=== PATIENT | male | born 1940 | race Caucasian/White ===

== ENCOUNTER → 2018-07-30 08:44 | Outpatient (CLI) | payer MEDICARE, BC | END | disposition home or self-care (01) | LOC: D.MRI 08:44 | DX: M54.5 Low back pain (principal) ==

== ENCOUNTER → 2018-09-18 09:15 | Outpatient (CLI) | payer MEDICARE, BC | END | disposition home or self-care (01) | LOC: D.HCCARDIO 09:15 | DX: I20.9 Angina pectoris, unspecified (principal) ==

== ENCOUNTER 2018-10-01 06:22 | Outpatient (CLI) | payer MEDICARE, BC ==
[~2018-10-01] VITALS: Ht 188 cm; Wt 115.9 kg
--- NOTE | ~2018-10-01 | HEMODYNAMI ---
PATIENT:RUMA LOPES MEDICAL RECORD: [id number] : 36 LOCATION:[facility] ADMISSION DATE: 10/01/18 Generatedon:10/01/20189:13 Patient name: RUMA LOPES Patient #: [id number] SSN: DO B: 1940 Date of study: 10/01/2018 Page: Of Hemodynamic Procedure Report Patient Data Patient Demographics Procedure consent was obtained First Name: RUMA Gender: Male Last Name: MOSES : 1940 Middle Initial: H Age: 77 year(s) Patient #: [id number] Race: Unknown Additional ID: [id number] Contact details [address]: [address] [place] [address] [place] State: [place] City: [place] Zip code: [address] Past Medical History Allergies: No known allergies Admission Admission Data Admission Date: 10/01/2018 Admission Time: 6:22 Height (in.): 72 BSA: 2.38 (m2) Height (cm.): 182.88 BMI: 35.26 (kg/m2) Weight (lbs.): 260 Weight (kg.): 117.93 Procedure Procedure Types Cath Procedure Diagnostic Procedure LHC LH w/Coronaries Sedation Charges Moderate Sedation up to 15 minutes Procedure Description Procedure Date Procedure Date: 10/01/2018 Procedure Start Time: 8:58 Procedure End Time: 9:10 Procedure Staff Name Function Marcus Osorio MD Performing Physician Erin Schreiber RT Scrub Saud Recinos RT Monitor Aj Spence RN Nurse Nya Hernandez RT Monitor Procedure Data Cath Procedure Fluoroscopy Diagnostic fluoroscopy Total fluoroscopy Time: 3.1 time: 3.1 min min Diagnostic fluoroscopy Total fluoroscopy dose: 969 dose: 969 mGy mGy Contrast Material Contrast Material Type Amount (ml) Isovue 300 49 Entry Location Entry Primary Successful Side Size Upsize Upsize Entry Closure Harris ccessful Closure Location (Fr) 1 (Fr) 2 (Fr) Remarks Device Remarks Radial Right 6 Fr Mechanical artery Short Compression Estimated blood loss: 10 ml Diagnostic catheters Device Type Used For End Catheter Placement DIAGNOSTIC Frantz 110cm Procedure 5Fr catheter ([id number]) Procedure Complications No complications Procedure Medications Medication Administration Route Dosage Oxygen etCO2 Nasal cannula 2 l/min 0.9% NaCl I.V. 100 ml/hr Heparin Flush Bag added to field 2 bags (1000units/500ml NS) Lidocaine 2% added to field 20 Radial Cocktail added to field 1 syringe (Verapomil 2mg/Nitro 400mcg/Heparin 1500units) Fentanyl I.V. 50 mcg Versed I.V. 1 mg Radial Cocktail I.A. 1 syringe (Verapomil 2mg/Nitro 400mcg/Heparin 1500units) Hemodynamics Rest BSA: 2.38 (m2) O2 Consumption: Estimated: 256.86 (ml/min) O2 Consumption indexed : Estimated:107.92 (ml/min/m) Heart Rate: 53 (bpm) Pressure Samples Time Site Value (mmHg) Purpose Heart Use Rate(bpm) 9:01 LV 108/3,15 Snapshot 59 9:01 LV 106/-3,7 Snapshot 61 9:02 AO 100/57(74) Pullback 59 9:02 LV 114/-3,13 Pullback 59 Gradients Valve Time Site 1 Site 2 Mean SEP/DFP Peak To Heart Use (mmHg) (sec/min) Peak Rate (mmHg) (bpm) Aortic 9:02 LV AO 5 14 14 59 114/-3,13 100/57(74) Calculations Valve P-P Mean Valve Index Valve Source Name Gradient Area Flow (cm2) Aortic 14 5 14 5 Snapshots Pre Cath Intra NCS Post Cath Vital Signs Time Heart Resp SPO2 etCO2 NIBP (mmHg) Rhythm Pain Sedation Rate (ipm) (%) (mmHg) Status Level (bpm) 8:52:10 58 16 93 0 125/78(92) NSR 0 (11) 10(A) , No pain 8:56:20 55 16 96 28.9 127/70(90) NSR 0 (11) 10(A) , No pain 9:00:32 58 16 88 28.9 121/68(91) NSR 0 (11) 10(A) , No pain 9:04:44 55 16 90 28.1 113/66(87) NSR 0 (11) 9(A) , No pain 9:08:52 54 16 94 31.2 124/65(99) NSR 0 (11) 9(A) , No pain 9:11:01 52 17 95 31.9 126/73(104) NSR 0 (11) 9(A) , No pain Medications Time Medication Route Dose Verified Delivered Reason Notes Effectiveness by by 8:55:33 Oxygen etCO2 2 l/min Marcus Aj Per Nasal Devon Spence RN physician cannula 8:55:50 0.9% NaCl I.V. 100 Marcus Aj Per ml/hr Devon Spence RN physician 8:56:07 Heparin Flush added 2 bags Marcus Aj used for Bag to Devon Spence RN procedure (1000units/500ml field NS) 8:56:16 Lidocaine 2% added 20ml Marcus Aj used for to vial Devon Spence almond blancher field 8:56:29 Radial Cocktail added 1 Marcus Aj used for (Verapomil to syringe Devon Spence RN procedure 2mg/Nitro field 400mcg/Heparin 1500units) 9:00:53 Fentanyl I.V. 50 mcg Marcus Aj for sedation Devon Spence RN 9:01:00 Versed I.V. 1 mg Marcus Aj for sedation Devon Spence RN 9:01:10 Radial Cocktail I.A. 1 Marcus Marcus for (Verapomil syringe Devon Osorio MD vasodilation 2mg/Nitro 400mcg/Heparin 1500units) Procedure Log Time Note 8:03:14 Patient Height : 72 inches 8:03:16 Patient Weight : 260 lbs 8:05:25 Signed procedure consent form obtained from patient. 8:25:15 Marcus Osorio MD sent for patient. Start room use. 8:29:16 Time tracking: Regular hours (M-F 7:00 - 5:00) 8:29:20 Plan of Care:Hemodynamics will remain stable., Cardiac rhythm will remain stable., Comfort level will be maintained., Respiratory function will remain adequate., Patient/ family verbilizes understanding of procedure., Procedure tolerated without complication., Recovers from procedure without complications.. 8:37:51 Patient received from Pre/Post Procedure Room to [facility] 2 Alert and oriented. Tansferred to table in Supine position. 8:37:52 Warm blankets applied, and vlad hugger turned on for patient comfort. 8:37:52 Correct patient and procedure confirmed by team. 8:37:53 ECG and BP/O2 sat monitors applied to patient. 8:51:04 Vital chart was started 8:51:05 Baseline sample Acquired. 8:51:10 Rhythm: sinus rhythm 8:51:15 Full Disclosure recording started 8:51:27 H&P Date Dictated: 09/24/2018 Within 30 days and on chart., H&P Addendum completed by physician on day of procedure. (MUST COMPLETE FOR ALL OUTPATIENTS). 8:51:29 Pre-procedure instructions explained to patient. 8:51:30 Family in waiting room. 8:51:32 Patient NPO since Midnight. 8:51:48 Patient allergic to No known allergies 8:51:53 Is the patient allergic to Iodine/contrast media? No. 8:51:54 Was the patient premedicated? Yes 8:51:56 Is patient on blood thinner?No 8:51:58 Patient diabetic? No. 8:52:02 Previous problem with sedation/anesthesia? No ? 8:52:06 Snore? Yes 8:52:07 Sleep apnea? Yes 8:52:08 Deviated septum? No 8:52:09 Opens mouth fully? Yes 8:52:10 Sticks out tongue? Yes 8:52:25 Airway obstruction? No ? 8:52:30 Dentures? Yes in tight 8:52:37 Patient pain scale 0/10 ?. 8:52:43 IV patent on arrival in left forearm with 0.9% NaCl at [facility]. 8:53:36 Right Radial & Right Groin area was prepped with chlora-prep and draped in sterile fashion 8:53:37 Alarms reviewed by R. N. 8:53:38 Sharps counted by scrub and verified by R.N. 8:53:39 Physician arrived 8:53:40 --------ALL STOP TIME OUT------ 8:53:41 Final Timeout: patient, procedure, and site verified with staff and physician. All members of the team are in agreement. 8:54:11 Right Radial & Right Groin site verified by team. 8:54:16 Physical assessment completed. ASA score P 2 - A patient with mild systemic disease as per Marcus Osorio MD. 8:54:20 Sedation plan: IV Moderate Sedation Medication:Versed, Fentanyl 8:54:25 Use device set Radial Dx or PCI 8:54:26 ACIST Syringe (92146) opened to sterile field. 8:54:27 Medline Cath Pack ([id number]) opened to sterile field. 8:54:27 Bag Decanter (2002S) opened to sterile field. 8:54:28 DIAGNOSTIC WIRE .035 260cm J wire (404402) opened to sterile field. 8:54:29 ACIST Hand Control (71190) opened to sterile field. 8:54:29 ACIST Manifold (75871) opened to sterile field. 8:54:30 Tegaderm 4 x 4 (1626W) opened to sterile field. 8:54:31 MBrace Wrist Support ([id number]) opened to sterile field. 8:54:35 SHEATH 6FR Slender (66-6447) opened to sterile field. 8:55:33 Oxygen 2 l/min etCO2 Nasal cannula was administered by Aj Spence RN; Per physician; 8:55:50 0.9% NaCl 100 ml/hr I.V. was administered by Aj Spence RN; Per physician; 8:56:07 Heparin Flush Bag (1000units/500ml NS) 2 bags added to field was administered by Aj Spence RN; used for procedure; 8:56:16 Lidocaine 2% 20ml vial added to field was administered by Aj Spence RN; used for procedure; 8:56:29 Radial Cocktail (Verapomil 2mg/Nitro 400mcg/Heparin 1500units) 1 syringe added to field was administered by Aj Spence RN; used for procedure; 8:58:20 Procedure started. 8:58:28 Local anesthetic to right radial artery with Lidocaine 2% by Marcus Osorio MD.INITIAL ACCESS ONLY 8:58:38 A 6 Fr Short sheath was inserted into the Right Radial artery 8:59:49 A DIAGNOSTIC Frantz 110cm 5Fr catheter ([id number]) was advanced over the wire and used for Procedure. 8:59:52 Zero performed for pressure channel P1 9:00:53 Fentanyl 50 mcg I.V. was administered by Aj Spence RN; for sedation; 9:01:00 Versed 1 mg I.V. was administered by Aj Spence RN; for sedation; 9:01:10 Radial Cocktail (Verapomil 2mg/Nitro 400mcg/Heparin 1500units) 1 syringe I.A. was administered by Marcus Osorio MD; for vasodilation; 9:02:29 EF : 60 % 9:02:57 LV gram done using TROTTER 9:03:19 RCA angiography performed. 9:04:00 LCA angiography performed. 9:06:37 Catheter removed. 9:07:25 Sheath removed intact; hemostasis achieved with Mechanical Compression to the Right Radial artery. 9:07:46 TR BAND Standard ([id number]) opened to sterile field. 9:07:49 Procedure ended.(Physican Out) 9:08:27 Fluoroscopy time 03.10 minutes. 9:08:33 Fluoroscopy dose: 969 mGy 9:08:33 Flurop Dose total: 969 9:08:39 Contrast amount:Isovue 300 49ml. 9:08:42 Sharps counted by scrub and verified by R.N. 9:08:45 TR band inflated with 10cc of air. 9:08:48 Insertion/operative site no bleeding no hematoma. 9:08:55 Post Procedure Pulses reassessed and unchanged 9:09:21 Post-procedure physical assessment completed. ASA score P 2 - A patient with mild systemic disease as per Marcus Osorio MD. 9:09:27 Post procedure rhythm: sinus rhythm 9:09:48 Estimated blood loss: 10 ml 9:09:49 Post procedure instruction explained to patient.Patient verbalizes understanding. 9:10:03 Procedure type changed to Cath procedure, Diagnostic procedure, LHC, LHC w/Coronaries, Sedation Charges, Moderate Sedation up to 15 minutes 9:10:04 Procedure and supply charges have been captured, reviewed, submitted and are correct. 9:10:25 Procedure Complication : No complications 9:10:28 Vital chart was stopped 9:10:29 See physician's report for complete and final results. 9:10:32 Report given to Pre/Post Procedure Room. 9:10:35 Patient transfered to Pre/Post Procedure Room with Stretcher. 9:10:36 Procedure ended. 9:10:36 Full Disclosure recording stopped 9:10:40 End room use (Document Last) Device Usage Item Name Manufacture Quantity Catalog Hospital Part Current Minimal Lot# / Number Charge Number Stock Stock Serial# Code ACIST Acist 1 49486 199541 956496 010736 20 Syringe Medical (27766) Systems Inc Medline Medline 1 [id number] 61564 268165 5 Cath Pack ([id number]) Bag Microtek 1 2001S 401658 09580 089992 5 Decanter Medical Inc. (2001S) DIAGNOSTIC [place] 1 670870 341383 333687 013741 30 WIRE .035 260cm J wire (993289) ACIST Hand Acist 1 20821 840072 445840 230000 5 Control Medical (05526) Systems Inc ACIST Acist 1 97768 808613 437070 651397 5 Manifold Medical (85149) Systems Inc Tegaderm 4 3M 1 1626W 867648 727035 797023 5 x 4 (1626W) MBrace Advanced 1 140-0250-00 817572 26491 711582 5 Wrist Vascular Support Dynamics ([id number]) SHEATH 6FR Terumo 1 [id number] 540044 698056 986952 5 Slender (80-1060) DIAGNOSTIC Terumo 1 405023 509957 428540 290193 5 Frantz 110cm 5Fr catheter (808876) TR BAND Terumo 1 [id number] 875850 611288 053954 40 Standard ([id number]) Signature Audit [place] Stage Time Signature Unsigned Intra-Procedure 10/01/2018 Nya Hernandez 9:13:16 AM RT(R) Signatures Monitor : Saud Recinos RT Signature : Date : Time : Monitor : Nya Hernandez Signature : RT Date : Time : [facility] [address] [place] [address]
[2018-10-01] MEDS ORDERED: TENORMIN25 MG PO (06:39)
[2018-10-01] MEDS ORDERED: MOBIC7.5 MG PO (06:39)
[2018-10-01] MEDS ORDERED: RANITIDINE HCL150 M1 PO (06:39)
[2018-10-01] MEDS ORDERED: ZOCOR20 MG PO (06:40)
[2018-10-01] MEDS ORDERED: NEURONTIN 300300 MG PO (06:40)
[2018-10-01] MEDS ORDERED: BAYER CHEWABLE81 MG PO (06:40)
[2018-10-01] MEDS ORDERED: NIASPAN500 MG PO (06:40)
[2018-10-01 06:49] VITALS: BP 141/90; Ht 188 cm; Wt 115.9 kg
[2018-10-01 07:35] LABS: ANION GAP 18.1 mmol/L (8-16); CARBON DIOXIDE 22.1 mmol/L (21.0-32.0); CREATININE - SERUM 1.4 mg/dL (0.6-1.3); POTASSIUM - SERUM 4.2 mmol/L (3.5-5.1)
[2018-10-01 08:09] LABS: HEMATOCRIT 47.3 % (42.0-54.0); HEMOGLOBIN 16.3 g/dL (13.5-17.5); LYMPHOCYTES 24.1 % (15-50); MCH 31.3 pg (26.0-34.0); MCHC 34.5 g/dL (31.0-37.0); MCV 90.8 fL (80.0-100.0); MEAN PLATELET VOLUME 9.3 fL (7.4-10.4); NEUTROPHILS 60.6 % (40-80); PLATELET COUNT 198 10x3/uL (130-400); RBC 5.21 10x6/uL (4.20-6.10); RDW 13.2 % (11.5-14.5); WBC 6.6 10x3/uL (4.8-10.8)
--- NOTE | 2018-10-01 09:20 | NUR ---
PT RECEIVED VIA STRETCHER FROM [facility] FOR [facility]ERY. PT AWAKE BUT DROWSY. DENIES PAIN OR NAUSEA. HR NSR RATE 62, BP 122/65, O2 SAT 93, PLACED ON O2 AT 2L/NC. TR BAND TO R WRIST, DRESSING CDI NO BLEEDING OR HEMATOMA NOTED. CAP REFILL BRISK, EXTREMITY WARM AND PINK. CALL LIGHT IN REACH.
--- NOTE | 2018-10-01 09:30 | NUR ---
PT RESTING QUIETLY, TR BAND IN PLACE NO BLEEDING OR SWELLING NOTED. DRESSING CDI. HR 51 SINUS KATTY. BP 119/59. DENIES PAIN OR NEEDS. A BEDSIDE, CALL LIGHT IN REACH.
--- NOTE | 2018-10-01 10:03 | NUR ---
PT SITTING UP TALKING WITH . TR BAND AND IMMOBILIZER IN PLACE, NO BLEEDING OR SWELLING NOTED. HR 52 NSR, BP 97/63. DENIES PAIN OR NEEDS. CALL LIGHT IN REACH
--- NOTE | 2018-10-01 10:15 | NUR ---
PT SITTING UP IN BED, DENIES PAIN OR NEEDS. TR BAND AND IMMOBILIZER IN PLACE, NO BLEEDING OR SWELLING NOTED. DRESSING CDI. VSS. CALL LIGHT IN REACH.
--- NOTE | 2018-10-01 10:40 | NUR ---
4 CC OF AIR REMOVED FROM TR BAND, NO BLEEDING OR SWELLING NOTED. DENIES PAIN OR NEEDS.
--- NOTE | 2018-10-01 11:00 | NUR ---
3 ADD'L CC OF AIR REMOVED FROM TR BAND, NO BLEEDING OR SWELLING NOTED. DENIES ANY PAIN OR NEEDS. VSS.
--- NOTE | 2018-10-01 11:20 | NUR ---
IV REMOVED WITH CATH INTACT. MONITORS AND O2 REMOVED. DISCHARGE TEACHING COMPLETED WTIH PT AND , BOTH VERBALIZED UNDERSTANDING. PT UP TO DRESS.
--- NOTE | 2018-10-01 11:30 | NUR ---
TR BAND AND REMAINING AIR REMOVED. NO BLEEDING OR SWELLING NOTED. DRESSING APPLIED.
--- NOTE | 2018-10-01 11:49 | NUR ---
PT TO PRIVATE VEHICLE VIA FOR DISCHARGE.
== END 2018-10-01 11:40 | disposition home or self-care (01) ==
LOC: D.CATH 06:22
PROVIDERS: Internal Medicine Cardiovascular Disease
DX: I20.0 Unstable angina (principal); R94.30 Abnormal result of cardiovascular function study, unspecified

== ENCOUNTER 2018-10-08 06:50 | Day surgery (SDC) | payer MEDICARE, BC ==
[2018-10-07 15:54] LABS: HEMATOCRIT 49.8 % (42.0-54.0); HEMOGLOBIN 17.3 g/dL (13.5-17.5); MCH 31.6 pg (26.0-34.0); MCHC 34.7 g/dL (31.0-37.0); MEAN PLATELET VOLUME 9.1 fL (7.4-10.4); RBC 5.47 10x6/uL (4.20-6.10); RDW 13.4 % (11.5-14.5); WBC 7.7 10x3/uL (4.8-10.8)
[~2018-10-08] VITALS: Ht 188 cm; Wt 114.3 kg
[~2018-10-08 06:50] MED LIST: BAYER CHEWABLE81 MG PO; MOBIC7.5 MG PO; NEURONTIN 300300 MG PO; NIASPAN500 MG PO; RANITIDINE HCL150 M1 PO; TENORMIN25 MG PO; ZOCOR20 MG PO
[2018-10-08 08:22] VITALS: BP 137/78; Ht 188 cm; Wt 114.3 kg
--- NOTE | 2018-10-08 18:30 | NUR ---
PATIENT AMBULATES TO BATHROOM AND VOIDS LARGE AMOUNT IN TOILET. LUMBAR INCISION CONTINUES TO BE C/D/I. PIV DC'D WITH TIP INTACT, SPOUSE ASSISTING PATIENT TO DRESS IN PERSONAL CLOTHING. DISCHARGE INSTRUCTIONS REVIEWED WITH PATIENT AND SPOUSE
--- NOTE | 2018-10-08 18:45 | NUR ---
DISCHARGED HOME VIA WHEELCHAIR TO PRIVATE VEHICLE WITH SPOUSE
--- NOTE | 2018-11-03 10:05 | OP ---
PATIENT NAME: RUMA LOPES MEDICAL RECORD: [id number] :38 LOCATION:[facility] ADMISSION DATE: SURGEON: CRISS GARCIA MD DATE OF OPERATION: 10/08/2018 PREOPERATIVE DIAGNOSES: Lumbar spinal stenosis with foraminal stenosis L3-L4, left. POSTOPERATIVE DIAGNOSES: Lumbar spinal stenosis with foraminal stenosis, L3-L4, left. PROCEDURES: Lumbar laminotomy, medial facetectomy, and foraminotomy at L3-L4 on the left with METRx retractor. OPERATIVE FINDINGS AND TECHNIQUE: After induction of general endotracheal anesthesia, the patient was rolled prone on a Milad frame. Lumbar spine was prepped and draped in usual sterile fashion. Fluoroscopic x-ray and spinal needle localized to the L3-L4 interspace on the left side. A microscope and Midas Grayson drill were used to perform laminotomy, medial facetectomy, and foraminotomy at L3-L4 on the left. Hypertrophied ligamentum flavum was removed with Cloward rongeurs. Next, a foraminotomy was carried out with Cloward rongeurs and the left L3-4 foramen. Following this, the L3 and L4 nerve roots were decompressed well. Meticulous hemostasis was maintained throughout the wound. The irrigated with copious amounts of Ancef irrigant solution. The fascia was closed with 2-0 Vicryl suture, the subdermal layer was closed with 3-0 Vicryl suture. The skin was closed with tadeo. A sterile dressing was applied to the wound. The patient was awakened in good condition and taken to recovery. All counts were reported as correct. Estimated blood loss was minimal. TRANSINT:[id number] Voice Confirmation ID: [id number] DOCUMENT ID: [id number] CRISS GARCIA MD at 1005 CC: [id number] DICTATION DATE: 10/28/18 1446 PRODUCER DIRECTOR: 10/28/181953 [facility] 10/08/[address] [address]
== END 2018-10-08 18:45 | disposition home or self-care (01) ==
LOC: D.OPS 06:50 → D.PAN 09:00 → D.OPS 09:00 → D.PAN 11:30 → D.OPS 12:00 → D.PAN 12:00 → D.OPS 18:45
PROVIDERS: Anesthesiology
DX: M48.061 Spinal stenosis, lumbar region without neurogenic claudication (principal)

== ENCOUNTER 2018-10-08 23:23 | Emergency (ER) | payer MEDICARE, BC ==
[~2018-10-08] VITALS: Ht 188 cm; Wt 113.6 kg
[2018-10-08 23:39] VITALS: Ht 188 cm; Wt 113.6 kg
[2018-10-09 01:11] VITALS: BP 158/77
== END 2018-10-09 01:13 | disposition home or self-care (01) ==
LOC: D.ER 23:23
DX: L76.22 Postprocedural hemorrhage of skin and subcutaneous tissue following other procedure (principal)